=== PATIENT | female | born 1940 | race Caucasian/White ===

== ENCOUNTER 2021-02-22 16:57 | Emergency (ER) | payer OTHER, BC ==
[2021-02-22] MEDS ORDERED: OXYMETAZOLINE 0.05% NASAL SOLUTION 15 ML BOTTLE NS ONE (17:00)
[2021-02-22 17:15] VITALS: TEMP 99.6; BMI 22.1
[2021-02-22 18:07] VITALS: BP 109/72; PULSE 95
== END 2021-02-22 18:27 | disposition home or self-care (01) ==
LOC: FER 16:57
DX: R04.0 Epistaxis (principal)
CPT/HCPCS: 99283-25